=== PATIENT | female | born 1960 | race Asian ===

== ENCOUNTER 2018-06-18 07:08 | Day surgery (SDC) | payer OTHER ==
[2018-06-18] MEDS ORDERED: FENTAnyl 50 MCG/ML VIAL (09:33)
[2018-06-18] MEDS ORDERED: MIDAZOLAM 1 MG/ML 2 ML INJ (09:33)
== END 2018-06-18 10:03 | disposition home or self-care (01) ==
LOC: GIL 07:08
DX: Z12.11 Encounter for screening for malignant neoplasm of colon (principal); K64.8 Other hemorrhoids
CPT/HCPCS: 45378